=== PATIENT | female | born 1940 | race Caucasian/White ===

== ENCOUNTER 2016-04-13 17:57 | Inpatient (IN) | payer OTHER, BC ==
[~2016-04-13] VITALS: Ht 162.6 cm; Wt 90.8 kg
[2016-04-13 20:02] LABS: PROTHROMBIN TIME 10.5 (9.2-11.2)
[2016-04-13 20:36] LABS: EOSINOPHIL (%) 0.5 % (0-5); EOSINOPHIL COUNT 0.1 K/uL (0-0.3); HEMATOCRIT 36.7 % (36.0-46.0); IMMATURE GRANULOCYTE (%) 0.1 % (0.0-0.7); IMMATURE GRANULOCYTE COUNT 0.1 K/uL; LYMPHOCYTE COUNT 0.9 K/uL (1.0-2.8); MCH 37.9 PG (29.0-34.0); MCV 105.5 FL (83-99); MEAN PLAT.VOLUME 8.8 uM^3 (9.5-12.4); MONOCYTE (%) 5.3 % (3-12); MONOCYTE COUNT 0.5 K/uL (0-0.8); NEUTROPHIL (%) 84.3 % (45-76); NEUTROPHIL COUNT 8.2 K/uL (1.8-6.4); PLATELET COUNT 171 K/uL (156-360); RBC DIS.WIDTH-CV 11.3 % (11.8-14.6); RBC DIS.WIDTH-SD 42.6 % (39-53); RED BLOOD COUNT 3.48 M/uL (3.80-5.20); WHITE BLOOD COUNT 9.7 K/uL (4.1-10.2)
[2016-04-13 20:54] LABS: CHLORIDE 103 mEq/L (99-109); POTASSIUM 3.6 mEq/L (3.7-5.4); SODIUM 138 mEq/L (136-147)
[2016-04-13 20:57] LABS: GLUCOSE 119 mg/dL (70-99)
[2016-04-13 20:58] LABS: ANION GAP 11 MEQ/L (2-14); TOTAL BILIRUBIN 0.3 mg/dL (0.0-1.0)
[2016-04-13 21:00] LABS: ALKALINE PHOSPHATASE 47 IU/L (3-129); GFR ESTIMATE (CALCULATED) 51 mL/min/
[2016-04-13 21:01] LABS: UREA NITROGEN (BUN) 20 mg/dL (9-23)
[2016-04-13] MEDS ORDERED: LEXAPRO20 MG PO (21:01)
[2016-04-13] MEDS ORDERED: EVISTA60 MG PO (21:01)
[2016-04-13] MEDS ORDERED: FUROSEMIDE20 MG PO (21:01)
[2016-04-13] MEDS ORDERED: CYANOCOBALAM1000 MCG PO (21:02)
[2016-04-13] MEDS ORDERED: LO-DOSE ASPIRIN81 M1 PO (21:02)
[2016-04-13] MEDS ORDERED: BENICAR HCT 401 EACH PO (21:02)
[2016-04-13] MEDS ORDERED: ADVIL,NUPRIN,M200 MG PO (21:03)
[2016-04-13] MEDS ORDERED: PROLIA60 MG/1 ML SC (21:03)
[2016-04-13 23:30] VITALS: BP 105/54
[2016-04-13 23:43] VITALS: BP 105/54
[2016-04-13 23:45] VITALS: BP 112/57
[2016-04-14] VITALS (14 sets, daily range): BP systolic 83–120; BP diastolic 41–58
[2016-04-14 01:06] LABS: METH RESISTANT S AUREUS PCR NEGATIVE (NEGATIVE)
[2016-04-14 01:10] LABS: PROBE CHECK PASS; SPECIMEN PROCESSING CONTROL PASS
[2016-04-14 06:02] LABS: ALKALINE PHOSPHATASE 38 IU/L (3-129); ANION GAP 8 MEQ/L (2-14); CHLORIDE 103 MEQ/L (99-109); GFR ESTIMATE (CALCULATED) 51 mL/min/; GLUCOSE 109 mg/dL (70-99); SAMPLE HEMOLYSIS CHECK 0; SAMPLE ICTERIC CHECK 0; SAMPLE LIPEMIA CHECK 0; SODIUM 139 MEQ/L (136-147); TOTAL BILIRUBIN 0.5 MG/DL (0.0-1.0); UREA NITROGEN (BUN) 18 mg/dL (9-23)
[2016-04-14 07:03] LABS: HEMATOCRIT 33.9 % (36.0-46.0); MCH 37.7 PG (29.0-34.0); MCHC 34.8 G/DL (30.0-36.0); MCV 108.3 FL (83-99); MEAN PLAT.VOLUME 9.1 uM^3 (9.5-12.4); PLATELET COUNT 146 K/uL (156-360); RBC DIS.WIDTH-CV 11.9 % (11.8-14.6); RBC DIS.WIDTH-SD 46.9 % (39-53); RED BLOOD COUNT 3.13 M/uL (3.80-5.20); WHITE BLOOD COUNT 6.1 K/uL (4.1-10.2)
[2016-04-15] VITALS: BP 101/54
[2016-04-15 04:00] VITALS: BP 127/55
[2016-04-15 08:00] VITALS: BP 114/56
[2016-04-15 12:00] VITALS: BP 105/45
[2016-04-15 16:35] VITALS: BP 114/59
[2016-04-15 20:00] VITALS: BP 111/62
[2016-04-16 00:02] VITALS: BP 112/82
[2016-04-16 04:12] VITALS: BP 128/60
[2016-04-16 07:32] VITALS: BP 115/59
[2016-04-16 11:16] VITALS: BP 125/67
[2016-04-16] MEDS ORDERED: CHLORZOXAZONE500 MG PO (12:22)
== END 2016-04-16 16:00 | disposition home or self-care (01) | DRG 87 ==
LOC: EME 17:57 → 4WEST 22:30 → EDOF 22:30 → 3EAST 22:30 → 4WEST 23:25 → 3EAST 04-15 15:58
PROVIDERS: Emergency Medicine; Surgery
PROC: 0HQ1XZZ Repair Face Skin, External Approach (ICD-10-PCS; principal; 2016-04-13)
DX: S06.6X1A Traumatic subarachnoid hemorrhage with loss of consciousness of 30 minutes or less, initial encounter (principal); S01.81XA Laceration without foreign body of other part of head, initial encounter; S46.001A Unspecified injury of muscle(s) and tendon(s) of the rotator cuff of right shoulder, initial encounter; S40.011A Contusion of right shoulder, initial encounter; S16.1XXA Strain of muscle, fascia and tendon at neck level, initial encounter; S00.83XA Contusion of other part of head, initial encounter; W19.XXXA Unspecified fall, initial encounter; Z91.19 Patient's noncompliance with other medical treatment and regimen; M17.11 Unilateral primary osteoarthritis, right knee; M19.011 Primary osteoarthritis, right shoulder; R26.9 Unspecified abnormalities of gait and mobility; D69.1 Qualitative platelet defects; R60.9 Edema, unspecified; I44.0 Atrioventricular block, first degree; J32.0 Chronic maxillary sinusitis; M45.9 Ankylosing spondylitis of unspecified sites in spine; M81.0 Age-related osteoporosis without current pathological fracture; I10 Essential (primary) hypertension; F32.9 Major depressive disorder, single episode, unspecified; Z85.3 Personal history of malignant neoplasm of breast; Z90.12 Acquired absence of left breast and nipple; F17.210 Nicotine dependence, cigarettes, uncomplicated
CPT/HCPCS: 70450; 70486; 72125; 72170; 73030; 73560; 80053; 85025; 85027; 85610; 87641; 93005; 97530 GO; 97530 GP; 99281; 99285; J0690; J1170; J2270; J2405; J3360; J3480; J7040; J7050